=== PATIENT | male | born 1990 | race Caucasian/White ===

== ENCOUNTER → 2016-11-09 | Outpatient (CLI) | payer OTHER ==
[~2016-11-09] MED LIST: AMOXICILLIN500 M2 PO; AMOXICILLIN500 M3 PO; ANAPROX DS550 MG PO; ATARAX25 MG PO; BACTRIM DS 8001 TA1 PO; BACTROBAN2% TP; BENADRYL ALLERG25 M5 PO; CEPHALEXIN500 M1 PO; CLARITIN10 MG PO; CLEOCIN HCL150 MG PO; CLEOCIN150 MG PO; CYCLOBENZAPRINE10 MG PO; DARVOCET N 1001 TAB PO; ELIMITE 5%60 GM T; FIORICET 325 MG1 TAB PO; FLONASE ALLERG9.9 ML NAS; Fioricet 325 MG1 TAB PO; HYDROCODONE BIT1 T11 PO; IBU-8800 MG PO; IBU800 M1 PO; KEFLEX500 MG PO; LAMISIL250 MG PO; LEVOTHYROXIN0.025 M1 PO; LOMOTIL 0.025 M1 TA1 PO; LOTRIMIN 1%15 GM T; MEDROL DOSEPAK4 MG PO; MOTRIN800 MG PO; Motrin,Rufen800 MG PO; NAPROSYN500 MG PO; NAPROXEN250 MG PO; NKHM; NORCO 325 MG-51 TAB PO; NORCO 5-325 TA1 EACH PO; OXAPROZIN600 M1 PO; PHENERGAN25 M1 PO; PREDNISONE10 MG PO; PREDNISONE20 M1 PO; PRILOSEC20 M1 PO; Percocet 325 MG1 TAB PO; QUALITY CHOICE10 M3 PO; TIZANIDINE HCL4 MG PO; TRAMADOL HCL50 MG PO; ULTRAM50 MG PO; VALTREX500 MG PO; VIBRAMYCIN100 MG PO; VICODIN 5/500 505 MG PO; ZANAFLEX4 M2 PO; ZANAFLEX6 M1 PO; ZANTAC 150150 MG PO; ZANTAC150 MG PO; ZITHROMAX250 MG PO; ZOFRAN4 MG PO; ZOLOFT25 MG PO; ZYRTEC10 MG PO; [UNRECOGNIZED DRUG - REMARK]
[2016-11-09 10:24] LABS: BASO % 0.7 % (0.0-1.0); EOS # 0.1 10*3/uL (0.0-0.4); EOS % 1.9 % (1.0-4.0); HEMOGLOBIN 14.8 g/dl (14.0-18.0); LYMPH # 1.4 10*3/uL (1.3-4.4); LYMPH % 32.4 % (27.0-41.0); MEAN CELL VOLUME 89.6 fl (80.0-94.0); MEAN CORPUSCULAR HGB 31.6 pg (27.0-31.0); MEAN CORPUSCULAR HGB CONC 35.2 g/dl (33.0-37.0); MEAN PLATELET VOLUME 9.1 fl (9.6-12.3); MONO # 0.5 10*3/uL (0.1-1.0); MONO % 10.7 % (3.0-9.0); NEUT # 2.3 10*3/uL (2.3-7.9); NEUT % 53.6 % (47.0-73.0); PLATELET COUNT AUTOMATED 160 10*3/uL (130-400); RED BLOOD COUNT 4.69 10*6/uL (4.50-5.90); RED CELL DISTRI WIDTH 12.4 % (0-14.5); WHITE BLOOD COUNT 4.2 10*3/uL (4.8-10.8)
[2016-11-10 07:06] LABS: HEPATITIS C VIRUS ANTIBODY <0.1 s/co (0.0-0.9)
[2016-11-10 09:12] LABS: RHEUMATOID ARTHRITIS FACTOR <10.0 IU/mL (0.0-13.9)
[2016-11-10 13:08] LABS: LYME AB/TOTAL IMMUNOGLOBULINS <0.91 ISR (0.00-0.90)
[2016-11-16 14:06] LABS: HLA-B27 ANTIGEN Negative (.)
== END | disposition home or self-care (01) ==
LOC: LAB 09:51
PROVIDERS: Physician Assistant
DX: M79.642 Pain in left hand (principal); M79.641 Pain in right hand; M25.442 Effusion, left hand; M25.441 Effusion, right hand

== ENCOUNTER 2017-01-19 18:17 | Emergency (ER) | payer OTHER ==
[~2017-01-19] VITALS: Ht 180.3 cm; Wt 114.8 kg
[2017-01-19] MEDS ORDERED: CLINDAMYCIN150 MG PO (18:29)
[2017-01-19] MEDS ORDERED: ZOFRAN4 MG PO (18:29)
== END 2017-01-19 18:30 | disposition home or self-care (01) ==
LOC: ED 18:17
DX: L05.01 Pilonidal cyst with abscess (principal); R03.0 Elevated blood-pressure reading, without diagnosis of hypertension; Z90.49 Acquired absence of other specified parts of digestive tract; Z79.899 Other long term (current) drug therapy; Z88.1 Allergy status to other antibiotic agents; Z88.6 Allergy status to analgesic agent; Z88.5 Allergy status to narcotic agent

== ENCOUNTER → 2017-02-03 | Day surgery (SDC) | payer OTHER ==
[2017-01-28 10:07] VITALS: BP 140/87
[2017-01-28 10:29] LABS: BASO % 0.6 % (0.0-1.0); EOS # 0.1 10*3/uL (0.0-0.4); EOS % 2.2 % (1.0-4.0); HEMATOCRIT 42.6 % (42.0-52.0); HEMOGLOBIN 15.5 g/dl (14.0-18.0); LYMPH # 1.6 10*3/uL (1.3-4.4); LYMPH % 31.4 % (27.0-41.0); MEAN CELL VOLUME 88.8 fl (80.0-94.0); MEAN CORPUSCULAR HGB 32.3 pg (27.0-31.0); MEAN CORPUSCULAR HGB CONC 36.4 g/dl (33.0-37.0); MEAN PLATELET VOLUME 9.6 fl (9.6-12.3); MONO # 0.5 10*3/uL (0.1-1.0); MONO % 8.8 % (3.0-9.0); NEUT # 2.9 10*3/uL (2.3-7.9); NEUT % 56.6 % (47.0-73.0); PLATELET COUNT AUTOMATED 171 10*3/uL (130-400); RED CELL DISTRI WIDTH 12.2 % (0-14.5); WHITE BLOOD COUNT 5.1 10*3/uL (4.8-10.8)
[2017-01-28 10:31] LABS: BILIRUBIN NEGATIVE (NEGATIVE); BLOOD NEGATIVE (NEGATIVE); CLARITY CLEAR (CLEAR); COLOR YELLOW (YELLOW); GLUCOSE NEGATIVE (NEGATIVE); KETONE NEGATIVE (NEGATIVE); LEUKO ESTERASE NEGATIVE (NEGATIVE); NITRITE NEGATIVE (NEGATIVE); PROTEIN NEGATIVE (NEGATIVE)
[2017-01-28 11:00] LABS: BUN 13 mg/dl (7-24); CARBON DIOXIDE 28 mmol/L (21-32); CHLORIDE 106 mmol/L (98-107); EST GLOM FILT AFRICAN AMERICAN > 60 ml/min; GLUCOSE 93 mg/dL (65-99); POTASSIUM 4.1 mmol/L (3.5-5.1); SODIUM 140 mmol/L (136-145)
[2017-01-28 11:02] LABS: PROTHROMBIN TIME 10.3 SECONDS (9.0-12.4)
[2017-01-28 12:20] LABS: MUCOUS 1+
[2017-02-03] VITALS (8 sets, daily range): BP systolic 111–145; BP diastolic 52–88
[~2017-02-03] VITALS: Ht 180.3 cm; Wt 115.7 kg
[~2017-02-03] MED LIST changes: +CLINDAMYCIN150 MG PO; +MELOXICAM15 MG PO
--- NOTE | ~2017-02-03 | O ---
[place], [place] OPERATIVE NOTE NAME: LIEN RANDOLPH Vance UNIT #: [id number] ROOM: DOCTOR: JEF HUITRON MD BIRTHDATE: [birth year] DOS: 02/03/2017 PREOPERATIVE DIAGNOSIS: Pilonidal cyst. POSTOPERATIVE DIAGNOSIS: Pilonidal cyst. PROCEDURE: Excision of pilonidal cyst. SURGEON: Dr. Jef Huitron. CEMENT CONVEYOR OPERATOR: PGY1. ANESTHESIA: GET. INDICATIONS: This is a 26-year-old gentleman with a history of pilonidal cyst who is here for the above-mentioned procedure. The procedure and its complications were explained to the patient in detail. Complications that were discussed included but were not limited to bleeding, infection, recurrence, prolonged postoperative pain, and damage to underlying vital structures, he agreed to proceed. DESCRIPTION OF PROCEDURE: After identifying the patient, the patient was brought to the operating suite and laid in the supine position. After induction of general anesthesia, he was placed in a prone position on the operating room table and the parts were then shaved, painted and draped in the usual sterile fashion. Timeout procedure was called. An elliptical incision around two openings in the pilonidal cyst area were marked. The skin and the subcutaneous tissue were incised with the help of a knife and deepened in layers. The entire sinus tract was excised and sent for histopathological diagnosis. Thereafter, hemostasis was achieved and the subcutaneous tissue was irrigated and approximated with the help of 0 Vicryl in interrupted fashion. The skin edges were infiltrated with 1% plain lidocaine and approximated with the help of 2-0 nylon in an interrupted mattress fashion and dressing was placed. The patient was taken to the recovery room in stable fashion after uneventful extubation. Dr. Jef Huitron, the attending surgeon, was present throughout the operating case. [place], [place] OPERATIVE NOTE NAME: AGUSTÍNLIEN UNIT #: [id number] ROOM: DOCTOR: JEF HUITRON MD BIRTHDATE: [birth year] Jef Hiutron MD CM:OPRECORD:OPERATIVE NOTE [id number] JEF HUITRON MD 02/03/17 1002 interface
== END | disposition home or self-care (01) ==
LOC: LAB 01-28 09:30 → SDC 01-28 09:30
PROVIDERS: Surgery
DX: L05.91 Pilonidal cyst without abscess (principal); I10 Essential (primary) hypertension; J45.909 Unspecified asthma, uncomplicated; E07.9 Disorder of thyroid, unspecified; K21.9 Gastro-esophageal reflux disease without esophagitis; F41.9 Anxiety disorder, unspecified; F31.9 Bipolar disorder, unspecified; F20.9 Schizophrenia, unspecified

== ENCOUNTER 2017-09-06 17:55 | Emergency (ER) | payer OTHER ==
[~2017-09-06] VITALS: Ht 154.9 cm; Wt 98.9 kg
[2017-09-06] MEDS ORDERED: FLONASE ALLERG9.9 ML NS (18:15)
[2017-09-06] MEDS ORDERED: ZITHROMAX250 MG PO (18:15)
== END 2017-09-06 18:16 | disposition home or self-care (01) ==
LOC: ED 17:55
DX: J01.90 Acute sinusitis, unspecified (principal); J45.909 Unspecified asthma, uncomplicated; Z88.1 Allergy status to other antibiotic agents; Z88.6 Allergy status to analgesic agent; Z79.899 Other long term (current) drug therapy

== ENCOUNTER 2018-02-03 12:26 | Emergency (ER) | payer OTHER ==
[~2018-02-03] VITALS: Ht 180.3 cm; Wt 104.3 kg
[~2018-02-03 12:26] MED LIST changes: +FLONASE ALLERG9.9 ML NS
[2018-02-03] MEDS ORDERED: CHLORZOXAZONE500 M2 PO (12:52)
[2018-02-03] MEDS ORDERED: TYLENOL EXTRA500 M2 PO (12:52)
== END 2018-02-03 12:58 | disposition home or self-care (01) ==
LOC: ED 12:26
DX: S29.012A Strain of muscle and tendon of back wall of thorax, initial encounter (principal); R03.0 Elevated blood-pressure reading, without diagnosis of hypertension; Z90.49 Acquired absence of other specified parts of digestive tract; Z79.899 Other long term (current) drug therapy; Z88.1 Allergy status to other antibiotic agents; Z88.6 Allergy status to analgesic agent; Z88.5 Allergy status to narcotic agent; X50.1XXA Overexertion from prolonged static or awkward postures, initial encounter; Y93.89 Activity, other specified; Y92.89 Other specified places as the place of occurrence of the external cause; Y99.9 Unspecified external cause status

== ENCOUNTER → 2018-05-10 | Outpatient (CLI) | payer OTHER ==
[~2018-05-10] MED LIST changes: +CHLORZOXAZONE500 M2 PO; +TYLENOL EXTRA500 M2 PO
== END | disposition home or self-care (01) ==
LOC: MRI 14:09
DX: S83.232A Complex tear of medial meniscus, current injury, left knee, initial encounter (principal); X58.XXXA Exposure to other specified factors, initial encounter; Y93.89 Activity, other specified; Y92.89 Other specified places as the place of occurrence of the external cause; Y99.8 Other external cause status

== ENCOUNTER 2018-10-06 18:42 | Emergency (ER) | payer OTHER ==
[~2018-10-06] VITALS: Ht 180.3 cm; Wt 104.3 kg
[2018-10-06] MEDS ORDERED: CHLORZOXAZONE500 M2 PO (18:51)
[2018-10-06] MEDS ORDERED: PREDNISONE10 MG PO (18:51)
== END 2018-10-06 20:06 | disposition home or self-care (01) ==
LOC: ED 18:42
DX: M54.42 Lumbago with sciatica, left side (principal); M54.6 Pain in thoracic spine; R03.0 Elevated blood-pressure reading, without diagnosis of hypertension; Z88.1 Allergy status to other antibiotic agents; Z88.6 Allergy status to analgesic agent; Z79.899 Other long term (current) drug therapy; Z90.49 Acquired absence of other specified parts of digestive tract; X50.1XXA Overexertion from prolonged static or awkward postures, initial encounter; Y93.F2 Activity, caregiving, lifting; Y92.89 Other specified places as the place of occurrence of the external cause; Y99.8 Other external cause status

== ENCOUNTER 2019-06-19 11:41 | Emergency (ER) | payer OTHER ==
[~2019-06-19] VITALS: Ht 180.3 cm; Wt 106.6 kg
[~2019-06-19 11:41] MED LIST changes: +LIDEX 0.05% CRE15 GM T
[2019-06-19] MEDS ORDERED: ALLERGY RELIEF180 MG PO (11:42)
[2019-06-19] MEDS ORDERED: LISINOPRIL5 MG PO (11:42)
[2019-06-19] MEDS ORDERED: GEMFIBROZIL600 MG PO (11:42)
[2019-06-19] MEDS ORDERED: LANSOPRAZOLE30 MG PO (11:42)
[2019-06-19] MEDS ORDERED: SERTRALINE HYDR50 MG PO (11:42)
[2019-06-19] MEDS ORDERED: IBU800 MG PO (13:26)
== END 2019-06-19 13:29 | disposition home or self-care (01) ==
LOC: ED 11:41
DX: M79.672 Pain in left foot (principal); Z88.1 Allergy status to other antibiotic agents; Z88.6 Allergy status to analgesic agent; Z88.8 Allergy status to other drugs, medicaments and biological substances; Z79.899 Other long term (current) drug therapy; X58.XXXA Exposure to other specified factors, initial encounter; Y93.89 Activity, other specified; Y92.89 Other specified places as the place of occurrence of the external cause; Y99.8 Other external cause status

== ENCOUNTER → 2019-07-31 | Outpatient (CLI) | payer OTHER ==
[~2019-07-31] MED LIST changes: +ALLERGY RELIEF180 MG PO; +GEMFIBROZIL600 MG PO; +IBU800 MG PO; +LANSOPRAZOLE30 MG PO; +LISINOPRIL5 MG PO; +SERTRALINE HYDR50 MG PO
== END | disposition home or self-care (01) ==
LOC: LAB 12:33
DX: Z00.00 Encounter for general adult medical examination without abnormal findings (principal)

== ENCOUNTER 2019-08-11 09:43 | Emergency (ER) | payer OTHER ==
[~2019-08-11] VITALS: Ht 180.3 cm; Wt 106.1 kg
== END 2019-08-11 11:45 | disposition home or self-care (01) ==
LOC: ED 09:43
DX: S86.811A Strain of other muscle(s) and tendon(s) at lower leg level, right leg, initial encounter (principal); Z90.49 Acquired absence of other specified parts of digestive tract; Z79.899 Other long term (current) drug therapy; Z88.6 Allergy status to analgesic agent; Z88.5 Allergy status to narcotic agent; Z88.1 Allergy status to other antibiotic agents; X50.1XXA Overexertion from prolonged static or awkward postures, initial encounter; Y93.89 Activity, other specified; Y92.89 Other specified places as the place of occurrence of the external cause; Y99.9 Unspecified external cause status

== ENCOUNTER → 2019-08-29 | Outpatient (CLI) | payer OTHER | END | disposition home or self-care (01) | LOC: MRI 08:04 | DX: M17.0 Bilateral primary osteoarthritis of knee (principal) ==

== ENCOUNTER → 2019-09-26 | Outpatient (CLI) | payer OTHER | END | disposition home or self-care (01) | LOC: RAD 01:30 | DX: M25.561 Pain in right knee (principal) ==

== ENCOUNTER → 2019-10-22 | Outpatient (CLI) | payer OTHER ==
[~2019-10-22] MED LIST changes: +ZOLOFT50 MG PO
[2019-10-22 10:58] LABS: BILIRUBIN NEGATIVE (NEGATIVE); BLOOD NEGATIVE (NEGATIVE); CLARITY CLEAR (CLEAR); COLOR YELLOW (YELLOW); GLUCOSE NEGATIVE (NEGATIVE); KETONE NEGATIVE (NEGATIVE); LEUKO ESTERASE NEGATIVE (NEGATIVE); NITRITE NEGATIVE (NEGATIVE); SPECIFIC GRAVITY 1.025 (1.005-1.030); UROBILINOGEN 0.2 E.U./dl (0.2-1.0)
[2019-10-22 11:12] LABS: BASO # 0.1 10*3/uL (0.0-0.1); EOS # 0.2 10*3/uL (0.0-0.4); EOS % 4.5 % (1.0-4.0); HEMATOCRIT 42.7 % (42.0-52.0); HEMOGLOBIN 14.8 g/dl (14.0-18.0); LYMPH # 1.4 10*3/uL (1.3-4.4); LYMPH % 28.7 % (27.0-41.0); MEAN CELL VOLUME 92.4 fl (80.0-94.0); MEAN CORPUSCULAR HGB CONC 34.7 g/dl (33.0-37.0); MEAN PLATELET VOLUME 9.7 fl (9.6-12.3); MONO # 0.5 10*3/uL (0.1-1.0); MONO % 10.1 % (3.0-9.0); NEUT # 2.7 10*3/uL (2.3-7.9); NEUT % 55.3 % (47.0-73.0); PLATELET COUNT AUTOMATED 197 10*3/uL (130-400); RED BLOOD COUNT 4.62 10*6/uL (4.50-5.90); RED CELL DISTRI WIDTH 12.3 % (0-14.5); WHITE BLOOD COUNT 4.9 10*3/uL (4.8-10.8)
[2019-10-22 11:24] LABS: EPITHELIAL CELLS 0-2; WBC 0-2 wbc/hpf (0-5)
== END | disposition home or self-care (01) ==
LOC: LAB 09:17
PROVIDERS: Orthopaedic Surgery
DX: S83.281A Other tear of lateral meniscus, current injury, right knee, initial encounter (principal); M94.261 Chondromalacia, right knee; I10 Essential (primary) hypertension; X58.XXXA Exposure to other specified factors, initial encounter; Y93.89 Activity, other specified; Y92.89 Other specified places as the place of occurrence of the external cause; Y99.8 Other external cause status

== ENCOUNTER → 2019-11-01 | Day surgery (SDC) | payer OTHER ==
[2019-10-22 09:45] VITALS: BP 130/76
[2019-11-01] VITALS (7 sets, daily range): BP systolic 118–151; BP diastolic 64–104
[~2019-11-01] VITALS: Ht 177.8 cm; Wt 109.3 kg
[~2019-11-01] MED LIST changes: +VISTARIL50 MG PO
== END | disposition home or self-care (01) ==
LOC: SDC 10-22 13:15
DX: S83.241A Other tear of medial meniscus, current injury, right knee, initial encounter (principal); M94.261 Chondromalacia, right knee; I10 Essential (primary) hypertension; K21.9 Gastro-esophageal reflux disease without esophagitis; F41.9 Anxiety disorder, unspecified; F32.9 Major depressive disorder, single episode, unspecified; J45.909 Unspecified asthma, uncomplicated; M19.90 Unspecified osteoarthritis, unspecified site; Z98.890 Other specified postprocedural states; Z79.899 Other long term (current) drug therapy; X58.XXXA Exposure to other specified factors, initial encounter; Y93.89 Activity, other specified; Y92.89 Other specified places as the place of occurrence of the external cause; Y99.8 Other external cause status; Z83.3 Family history of diabetes mellitus

== ENCOUNTER 2020-03-15 14:32 | Emergency (ER) | payer OTHER ==
[~2020-03-15] VITALS: Ht 180.3 cm; Wt 109.8 kg
[2020-03-15] MEDS ORDERED: IBU800 MG PO (17:17)
[2020-03-15] MEDS ORDERED: NORCO 5-325 TA1 EACH PO (17:17)
== END 2020-03-15 17:34 | disposition home or self-care (01) ==
LOC: ED 14:32
DX: S89.92XA Unspecified injury of left lower leg, initial encounter (principal); I10 Essential (primary) hypertension; J45.909 Unspecified asthma, uncomplicated; K21.9 Gastro-esophageal reflux disease without esophagitis; F41.9 Anxiety disorder, unspecified; F31.9 Bipolar disorder, unspecified; Z88.8 Allergy status to other drugs, medicaments and biological substances; Z88.5 Allergy status to narcotic agent; Z79.899 Other long term (current) drug therapy; Z79.2 Long term (current) use of antibiotics; Z90.49 Acquired absence of other specified parts of digestive tract; Y93.6A Activity, physical games generally associated with school recess, summer camp and children; Y93.89 Activity, other specified; Y92.89 Other specified places as the place of occurrence of the external cause; Y99.8 Other external cause status

== ENCOUNTER 2020-09-30 14:43 | Emergency (ER) | payer OTHER ==
[~2020-09-30] VITALS: Ht 180.3 cm; Wt 115.2 kg
[2020-09-30] MEDS ORDERED: NORCO 5-325 TA1 EACH PO (18:52)
== END 2020-09-30 19:02 | disposition home or self-care (01) ==
LOC: ED 14:43
DX: S92.355A Nondisplaced fracture of fifth metatarsal bone, left foot, initial encounter for closed fracture (principal); I10 Essential (primary) hypertension; J45.909 Unspecified asthma, uncomplicated; K21.9 Gastro-esophageal reflux disease without esophagitis; F41.9 Anxiety disorder, unspecified; F31.9 Bipolar disorder, unspecified; F90.9 Attention-deficit hyperactivity disorder, unspecified type; F20.9 Schizophrenia, unspecified; F32.9 Major depressive disorder, single episode, unspecified; Z88.1 Allergy status to other antibiotic agents; Z88.6 Allergy status to analgesic agent; Z79.899 Other long term (current) drug therapy; Z90.49 Acquired absence of other specified parts of digestive tract; X50.1XXA Overexertion from prolonged static or awkward postures, initial encounter; Y93.89 Activity, other specified; Y92.89 Other specified places as the place of occurrence of the external cause; Y99.8 Other external cause status

== ENCOUNTER 2021-02-09 22:36 | Emergency (ER) | payer OTHER ==
[2021-02-10] MEDS ORDERED: NAPROSYN500 MG PO (00:24)
== END 2021-02-10 00:27 | disposition home or self-care (01) ==
LOC: ED 22:36
DX: S92.352A Displaced fracture of fifth metatarsal bone, left foot, initial encounter for closed fracture (principal); M79.672 Pain in left foot; Z90.49 Acquired absence of other specified parts of digestive tract; Z98.890 Other specified postprocedural states; Z88.8 Allergy status to other drugs, medicaments and biological substances; Z88.5 Allergy status to narcotic agent; X58.XXXA Exposure to other specified factors, initial encounter; Y93.89 Activity, other specified; Y92.89 Other specified places as the place of occurrence of the external cause; Y99.8 Other external cause status

== ENCOUNTER 2021-03-06 15:40 | Emergency (ER) | payer OTHER ==
[~2021-03-06] VITALS: Ht 180.3 cm; Wt 119.7 kg
[2021-03-06] MEDS ORDERED: CEPHALEXIN500 M1 PO (20:45)
[2021-03-06] MEDS ORDERED: HYDROCODONE-AC1 EAC1 PO (20:45)
== END 2021-03-06 20:45 | disposition home or self-care (01) ==
LOC: ED 15:40
DX: S61.431A Puncture wound without foreign body of right hand, initial encounter (principal); Z88.8 Allergy status to other drugs, medicaments and biological substances; Z88.5 Allergy status to narcotic agent; Z79.899 Other long term (current) drug therapy; Z90.49 Acquired absence of other specified parts of digestive tract; Z98.890 Other specified postprocedural states; X58.XXXA Exposure to other specified factors, initial encounter; Y93.89 Activity, other specified; Y92.89 Other specified places as the place of occurrence of the external cause; Y99.8 Other external cause status

== ENCOUNTER → 2021-03-13 | Outpatient (CLI) | payer OTHER ==
[~2021-03-13] MED LIST changes: +HYDROCODONE-AC1 EAC1 PO
[2021-03-13 15:50] LABS: BILIRUBIN Negative (Negative); BLOOD Negative (Negative); CLARITY Clear (Clear); COLOR Yellow (Yellow); GLUCOSE Negative (Negative); KETONE Negative (Negative); LEUKO ESTERASE Negative (Negative); NITRITE Negative (Negative)
[2021-03-13 15:52] LABS: BASO % 0.8 % (0.0-1.0); EOS # 0.1 10*3/uL (0.0-0.4); EOS % 2.8 % (1.0-4.0); HEMATOCRIT 41.8 % (42.0-52.0); LYMPH # 1.3 10*3/uL (1.3-4.4); LYMPH % 31.6 % (27.0-41.0); MEAN CELL VOLUME 91.3 fl (80.0-94.0); MEAN CORPUSCULAR HGB 31.9 pg (27.0-31.0); MEAN CORPUSCULAR HGB CONC 34.9 g/dl (33.0-37.0); MEAN PLATELET VOLUME 9.9 fl (9.6-12.3); MONO # 0.4 10*3/uL (0.1-1.0); MONO % 9.9 % (3.0-9.0); NEUT # 2.2 10*3/uL (2.3-7.9); NEUT % 54.4 % (47.0-73.0); PLATELET COUNT AUTOMATED 206 10*3/uL (130-400); RED BLOOD COUNT 4.58 10*6/uL (4.50-5.90); RED CELL DISTRI WIDTH 12.2 % (0-14.5); RETICULOCYTE % 2.07 % (0.50-2.50)
[2021-03-13 16:22] LABS: ALBUMIN 4.4 gm/dl (3.1-4.5); ALKALINE PHOSPHATASE 70 U/L (45-117); BUN 17 mg/dl (7-24); CHLORIDE 106 mmol/L (98-107); CHOLESTEROL 193 mg/dL (<200); CREATININE 1.01 mg/dL (0.70-1.30); GAMMA GLUTAMYL TRANSPEPTIDASE 24 U/L (15-85); IRON 202 ug/dL (65-175); LDL CHOLESTEROL 92 mg/dL (9-159); POTASSIUM 3.9 mmol/L (3.5-5.1); SGOT/AST 39 IU/L (3-35); SGPT/ALT 67 U/L (12-78); SODIUM 138 mmol/L (136-145); TOTAL IRON BINDING CAPACITY 444 ug/dl (250-450); TOTAL PROTEIN 7.5 gm/dL (6.4-8.2); TRIGLYCERIDES 360 mg/dl (<150)
[2021-03-13 16:29] LABS: CPK 181 U/L (39-308)
[2021-03-13 16:41] LABS: FERRITIN 110.3 ng/mL (22.0-322.0); VITAMIN D, 25-HYDROXY 26.6 ng/mL (30-100)
[2021-03-13 17:00] LABS: EPITHELIAL CELLS 16-20; HYALINE CAST 0-2; MUCOUS TRACE; WBC 0-2 wbc/hpf (0-5)
== END | disposition home or self-care (01) ==
LOC: LAB 14:15
PROVIDERS: ATTEND Family Medicine
DX: E78.5 Hyperlipidemia, unspecified (principal); R79.89 Other specified abnormal findings of blood chemistry; R53.83 Other fatigue; E55.9 Vitamin D deficiency, unspecified; R74.8 Abnormal levels of other serum enzymes

== ENCOUNTER 2021-06-18 13:56 | Emergency (ER) | payer OTHER ==
[~2021-06-18] VITALS: Ht 180.3 cm; Wt 116.6 kg
== END 2021-06-18 16:12 | disposition home or self-care (01) ==
LOC: ED 13:56
DX: U07.1 COVID-19 (principal); Z88.1 Allergy status to other antibiotic agents; Z88.6 Allergy status to analgesic agent; Z79.899 Other long term (current) drug therapy

== ENCOUNTER 2021-07-12 23:46 | Emergency (ER) | payer OTHER ==
[~2021-07-12] VITALS: Wt 106.6 kg
[2021-07-13 00:38] LABS: BASO % 0.8 % (0.0-1.0); EOS # 0.2 10*3/uL (0.0-0.4); EOS % 3.2 % (1.0-4.0); HEMATOCRIT 39.2 % (42.0-52.0); LYMPH # 1.4 10*3/uL (1.3-4.4); LYMPH % 29.4 % (27.0-41.0); MEAN CELL VOLUME 92.9 fl (80.0-94.0); MEAN CORPUSCULAR HGB 32.9 pg (27.0-31.0); MEAN CORPUSCULAR HGB CONC 35.5 g/dl (33.0-37.0); MONO # 0.4 10*3/uL (0.1-1.0); MONO % 8.8 % (3.0-9.0); NEUT # 2.7 10*3/uL (2.3-7.9); NEUT % 57.4 % (47.0-73.0); PLATELET COUNT AUTOMATED 182 10*3/uL (130-400); RED BLOOD COUNT 4.22 10*6/uL (4.50-5.90); RED CELL DISTRI WIDTH 12.3 % (0-14.5); WHITE BLOOD COUNT 4.8 10*3/uL (4.8-10.8)
[2021-07-13 01:02] LABS: ALBUMIN 4.2 gm/dl (3.1-4.5); ALKALINE PHOSPHATASE 64 U/L (45-117); BUN 23 mg/dl (7-24); CHLORIDE 107 mmol/L (98-107); CREATININE 0.99 mg/dL (0.70-1.30); LIPASE 134 U/L (73-393); POTASSIUM 3.5 mmol/L (3.5-5.1); SGOT/AST 37 IU/L (3-35); SGPT/ALT 87 U/L (12-78); SODIUM 139 mmol/L (136-145); TOTAL PROTEIN 7.3 gm/dL (6.4-8.2)
[2021-07-13 01:03] LABS: TROPONIN I < 0.015 ng/ml (<0.045)
== END 2021-07-13 04:45 | disposition home or self-care (01) ==
LOC: ED 23:46
PROVIDERS: Emergency Medicine
DX: R07.89 Other chest pain (principal); R20.0 Anesthesia of skin; R06.02 Shortness of breath; E78.00 Pure hypercholesterolemia, unspecified; I10 Essential (primary) hypertension; E03.9 Hypothyroidism, unspecified; Z88.1 Allergy status to other antibiotic agents; Z88.6 Allergy status to analgesic agent; Z79.2 Long term (current) use of antibiotics; Z79.899 Other long term (current) drug therapy; Z90.49 Acquired absence of other specified parts of digestive tract

== ENCOUNTER → 2021-07-24 | Outpatient (CLI) | payer OTHER | END | disposition home or self-care (01) | LOC: US 06:49 | PROVIDERS: ATTEND Family Medicine | DX: K80.20 Calculus of gallbladder without cholecystitis without obstruction (principal); R10.84 Generalized abdominal pain ==

== ENCOUNTER → 2021-07-29 | Outpatient (CLI) | payer OTHER | END | disposition home or self-care (01) | LOC: RAD 11:30 | PROVIDERS: ATTEND Family Medicine | DX: M17.12 Unilateral primary osteoarthritis, left knee (principal) ==

== ENCOUNTER → 2021-09-11 | Outpatient (CLI) | payer OTHER ==
[2021-09-11 13:39] LABS: BASO % 0.7 % (0.0-1.0); EOS # 0.1 10*3/uL (0.0-0.4); EOS % 2.5 % (1.0-4.0); HEMATOCRIT 42.6 % (42.0-52.0); LYMPH # 1.1 10*3/uL (1.3-4.4); LYMPH % 25.5 % (27.0-41.0); MEAN CELL VOLUME 93.6 fl (80.0-94.0); MEAN CORPUSCULAR HGB 32.7 pg (27.0-31.0); MEAN PLATELET VOLUME 10.2 fl (9.6-12.3); MONO # 0.6 10*3/uL (0.1-1.0); NEUT # 2.6 10*3/uL (2.3-7.9); NEUT % 58.1 % (47.0-73.0); PLATELET COUNT AUTOMATED 189 10*3/uL (130-400); RED BLOOD COUNT 4.55 10*6/uL (4.50-5.90); RETICULOCYTE % 1.71 % (0.50-2.50); WHITE BLOOD COUNT 4.4 10*3/uL (4.8-10.8)
[2021-09-11 13:44] LABS: BILIRUBIN Negative (Negative); BLOOD Negative (Negative); CLARITY Clear (Clear); COLOR Yellow (Yellow); GLUCOSE Negative (Negative); KETONE Negative (Negative); LEUKO ESTERASE Negative (Negative); NITRITE Negative (Negative); PH 7.5 (4.5-8.0)
[2021-09-11 13:54] LABS: ALBUMIN 4.2 gm/dl (3.1-4.5); ALKALINE PHOSPHATASE 55 U/L (45-117); BUN 16 mg/dl (7-24); CHLORIDE 108 mmol/L (98-107); CHOLESTEROL 159 mg/dL (<200); CREATININE 0.83 mg/dL (0.70-1.30); GAMMA GLUTAMYL TRANSPEPTIDASE 24 U/L (15-85); IRON 118 ug/dL (65-175); LDL CHOLESTEROL 64 mg/dL (9-159); POTASSIUM 3.9 mmol/L (3.5-5.1); SGOT/AST 36 IU/L (3-35); SGPT/ALT 88 U/L (12-78); SODIUM 138 mmol/L (136-145); TOTAL IRON BINDING CAPACITY 399 ug/dl (250-450); TOTAL PROTEIN 7.5 gm/dL (6.4-8.2); TRIGLYCERIDES 320 mg/dl (<150)
[2021-09-11 13:55] LABS: BACTERIA TRACE; MUCOUS 1+; WBC 0-2 wbc/hpf (0-5)
[2021-09-11 15:18] LABS: FERRITIN 97.1 ng/mL (22.0-322.0); VITAMIN D, 25-HYDROXY 26.5 ng/mL (30-100)
== END | disposition home or self-care (01) ==
LOC: LAB 12:45
PROVIDERS: ATTEND Family Medicine
DX: E55.9 Vitamin D deficiency, unspecified (principal); E78.5 Hyperlipidemia, unspecified; R79.89 Other specified abnormal findings of blood chemistry; R53.83 Other fatigue; R74.8 Abnormal levels of other serum enzymes

== ENCOUNTER 2021-10-02 21:06 | Emergency (ER) | payer OTHER ==
[~2021-10-02] VITALS: Ht 180.3 cm; Wt 109.8 kg
[2021-10-02 22:20] LABS: BILIRUBIN Negative (Negative); BLOOD Negative (Negative); CLARITY Clear (Clear); COLOR Yellow (Yellow); GLUCOSE Negative (Negative); KETONE Negative (Negative); LEUKO ESTERASE 2+ (Negative); NITRITE Negative (Negative); SPECIFIC GRAVITY 1.025 (1.001-1.030)
[2021-10-02 22:27] LABS: BACTERIA TRACE; EPITHELIAL CELLS 0-2; RBC 0-2 rbc/hpf (0-2); WBC TNTC wbc/hpf (0-5)
[2021-10-03] MEDS ORDERED: ATORVASTATIN CA10 M1 PO (00:13)
[2021-10-03] MEDS ORDERED: VITAMIN D3125 MC1 PO (00:13)
[2021-10-03] MEDS ORDERED: LEVOFLOXACIN500 MG PO (01:11)
== END 2021-10-03 01:37 | disposition home or self-care (01) ==
LOC: ED 21:06
PROVIDERS: Emergency Medicine
DX: N45.1 Epididymitis (principal); N39.0 Urinary tract infection, site not specified; Z88.1 Allergy status to other antibiotic agents; Z88.6 Allergy status to analgesic agent; Z79.899 Other long term (current) drug therapy

== ENCOUNTER → 2021-10-26 | Day surgery (SDC) | payer OTHER ==
[2021-10-22 13:47] VITALS: BP 142/94
[~2021-10-26] VITALS: Ht 180.3 cm; Wt 110.7 kg
[~2021-10-26] MED LIST changes: +ATORVASTATIN CA10 M1 PO; +CETIRIZINE HYDR10 MG PO; +COLACE100 MG PO; +HYDROCODONE-AC1 EACH PO; +LEVOFLOXACIN500 MG PO; +MELOXICAM7.5 MG PO; +PROVENTIL HFA6.7 GM INH; +SERTRALINE HYDR25 MG PO; +VITAMIN D3125 MC1 PO
[2021-10-26 06:54] VITALS: BP 137/95
[2021-10-26 08:45] VITALS: BP 154/96
[2021-10-26 09:03] VITALS: BP 146/91
[2021-10-26 09:23] VITALS: BP 155/86
[2021-10-26 09:40] VITALS: BP 130/88
[2021-10-26 10:00] VITALS: BP 135/87
== END | disposition home or self-care (01) ==
LOC: SDC 10-22 13:15
PROVIDERS: ATTEND Surgery
DX: K80.10 Calculus of gallbladder with chronic cholecystitis without obstruction (principal); I10 Essential (primary) hypertension; J45.909 Unspecified asthma, uncomplicated; K21.9 Gastro-esophageal reflux disease without esophagitis; F41.9 Anxiety disorder, unspecified; F90.9 Attention-deficit hyperactivity disorder, unspecified type; F25.0 Schizoaffective disorder, bipolar type; E03.9 Hypothyroidism, unspecified; Z88.1 Allergy status to other antibiotic agents; Z88.6 Allergy status to analgesic agent; Z20.822 Contact with and (suspected) exposure to COVID-19; Z79.899 Other long term (current) drug therapy

== ENCOUNTER → 2022-03-09 | Outpatient (CLI) | payer OTHER ==
[2022-03-09 10:48] LABS: EOS # 0.2 10*3/uL (0.0-0.4); EOS % 4.5 % (1.0-4.0); HEMATOCRIT 41.4 % (42.0-52.0); LYMPH # 1.2 10*3/uL (1.3-4.4); LYMPH % 29.6 % (27.0-41.0); MEAN CELL VOLUME 91.4 fl (80.0-94.0); MEAN CORPUSCULAR HGB 32.7 pg (27.0-31.0); MEAN CORPUSCULAR HGB CONC 35.7 g/dl (33.0-37.0); MEAN PLATELET VOLUME 9.5 fl (9.6-12.3); MONO # 0.4 10*3/uL (0.1-1.0); MONO % 10.9 % (3.0-9.0); NEUT # 2.2 10*3/uL (2.3-7.9); NEUT % 53.8 % (47.0-73.0); PLATELET COUNT AUTOMATED 169 10*3/uL (130-400); RED BLOOD COUNT 4.53 10*6/uL (4.50-5.90); RED CELL DISTRI WIDTH 12.3 % (0-14.5); RETICULOCYTE % 2.19 % (0.50-2.50)
[2022-03-09 10:49] LABS: BILIRUBIN Negative (Negative); BLOOD Negative (Negative); CLARITY Clear (Clear); COLOR Yellow (Yellow); GLUCOSE Negative (Negative); KETONE Negative (Negative); LEUKO ESTERASE Negative (Negative); NITRITE Negative (Negative); PH 6.5 (4.5-8.0); SPECIFIC GRAVITY 1.015 (1.001-1.030)
[2022-03-09 11:08] LABS: RBC 0-2 rbc/hpf (0-2); WBC 0-2 wbc/hpf (0-5)
[2022-03-09 11:18] LABS: ALKALINE PHOSPHATASE 55 U/L (45-117); BUN 18 mg/dl (7-24); CHLORIDE 107 mmol/L (98-107); CHOLESTEROL 145 mg/dL (<200); CREATININE 0.89 mg/dL (0.70-1.30); GAMMA GLUTAMYL TRANSPEPTIDASE 33 U/L (15-85); IRON 164 ug/dL (65-175); LDL CHOLESTEROL 49 mg/dL (9-159); POTASSIUM 4.4 mmol/L (3.5-5.1); SGOT/AST 50 IU/L (3-35); SGPT/ALT 75 U/L (12-78); SODIUM 138 mmol/L (136-145); TOTAL IRON BINDING CAPACITY 391 ug/dl (250-450); TOTAL PROTEIN 7.2 gm/dL (6.4-8.2); TRIGLYCERIDES 355 mg/dl (<150)
[2022-03-09 12:14] LABS: FERRITIN 97.7 ng/mL (22.0-322.0)
== END | disposition home or self-care (01) ==
LOC: LAB 10:26
PROVIDERS: ATTEND Family Medicine
DX: E78.5 Hyperlipidemia, unspecified (principal); E55.9 Vitamin D deficiency, unspecified; R53.83 Other fatigue; R79.89 Other specified abnormal findings of blood chemistry; R74.8 Abnormal levels of other serum enzymes

== ENCOUNTER → 2022-05-18 | Outpatient (CLI) | payer OTHER | END | disposition home or self-care (01) | LOC: RAD 09:33 | PROVIDERS: ATTEND Family Medicine | DX: M17.12 Unilateral primary osteoarthritis, left knee (principal) ==

== ENCOUNTER 2022-06-09 22:54 | Emergency (ER) | payer OTHER | END 2022-06-10 00:11 | disposition home or self-care (01) | LOC: ED 22:54 | DX: R51.9 Headache, unspecified (principal); I10 Essential (primary) hypertension; J45.909 Unspecified asthma, uncomplicated; K21.9 Gastro-esophageal reflux disease without esophagitis; Z88.1 Allergy status to other antibiotic agents; Z88.8 Allergy status to other drugs, medicaments and biological substances; Z79.899 Other long term (current) drug therapy; Z90.49 Acquired absence of other specified parts of digestive tract ==

== ENCOUNTER → 2022-08-03 | Outpatient (CLI) | payer OTHER ==
[2022-08-03 12:51] LABS: BILIRUBIN Negative (Negative); BLOOD Negative (Negative); CLARITY Clear (Clear); COLOR Yellow (Yellow); GLUCOSE Negative (Negative); KETONE Negative (Negative); LEUKO ESTERASE Negative (Negative); NITRITE Negative (Negative); SPECIFIC GRAVITY 1.025 (1.001-1.030)
[2022-08-03 12:52] LABS: BASO % 0.9 % (0.0-1.0); EOS # 0.2 10*3/uL (0.0-0.4); EOS % 3.6 % (1.0-4.0); HEMATOCRIT 41.7 % (42.0-52.0); LYMPH # 1.1 10*3/uL (1.3-4.4); LYMPH % 23.3 % (27.0-41.0); MEAN CELL VOLUME 94.1 fl (80.0-94.0); MEAN CORPUSCULAR HGB 33.4 pg (27.0-31.0); MEAN CORPUSCULAR HGB CONC 35.5 g/dl (33.0-37.0); MEAN PLATELET VOLUME 9.8 fl (9.6-12.3); MONO # 0.5 10*3/uL (0.1-1.0); NEUT # 2.9 10*3/uL (2.3-7.9); NEUT % 61.8 % (47.0-73.0); PLATELET COUNT AUTOMATED 179 10*3/uL (130-400); RED BLOOD COUNT 4.43 10*6/uL (4.50-5.90); RED CELL DISTRI WIDTH 12.3 % (0-14.5); RETICULOCYTE % 2.38 % (0.50-2.50); WHITE BLOOD COUNT 4.7 10*3/uL (4.8-10.8)
[2022-08-03 13:09] LABS: ALKALINE PHOSPHATASE 63 U/L (45-117); BUN 14 mg/dl (7-24); CHLORIDE 108 mmol/L (98-107); CHOLESTEROL 123 mg/dL (<200); GAMMA GLUTAMYL TRANSPEPTIDASE 38 U/L (15-85); LDL CHOLESTEROL 66 mg/dL (9-159); POTASSIUM 3.8 mmol/L (3.5-5.1); SGOT/AST 71 IU/L (3-35); SGPT/ALT 132 U/L (12-78); SODIUM 139 mmol/L (136-145); TOTAL PROTEIN 7.6 gm/dL (6.4-8.2); TRIGLYCERIDES 145 mg/dl (<150)
[2022-08-03 13:15] LABS: IRON 138 ug/dL (65-175)
[2022-08-03 13:38] LABS: BACTERIA TRACE; EPITHELIAL CELLS 0-2; MUCOUS 1+; RBC 0-2 rbc/hpf (0-2); WBC 0-2 wbc/hpf (0-5)
== END | disposition home or self-care (01) ==
LOC: LAB 12:17
PROVIDERS: ATTEND Family Medicine
DX: M17.11 Unilateral primary osteoarthritis, right knee (principal); E78.5 Hyperlipidemia, unspecified; R79.89 Other specified abnormal findings of blood chemistry; E55.9 Vitamin D deficiency, unspecified; R74.8 Abnormal levels of other serum enzymes; R53.83 Other fatigue

== ENCOUNTER 2022-09-17 13:08 | Emergency (ER) | payer OTHER ==
[~2022-09-17] VITALS: Ht 180.3 cm; Wt 119.3 kg
== END 2022-09-17 15:22 | disposition home or self-care (01) ==
LOC: ED 13:08
DX: S90.121A Contusion of right lesser toe(s) without damage to nail, initial encounter (principal); Z88.1 Allergy status to other antibiotic agents; Z88.8 Allergy status to other drugs, medicaments and biological substances; Z79.899 Other long term (current) drug therapy; Z90.49 Acquired absence of other specified parts of digestive tract; W22.8XXA Striking against or struck by other objects, initial encounter; Y93.89 Activity, other specified; Y92.89 Other specified places as the place of occurrence of the external cause; Y99.8 Other external cause status

== ENCOUNTER → 2022-10-20 | Outpatient (CLI) | payer OTHER ==
[2022-10-20 15:36] LABS: BILIRUBIN Negative (Negative); BLOOD Negative (Negative); CLARITY Clear (Clear); COLOR Yellow (Yellow); GLUCOSE Negative (Negative); KETONE Negative (Negative); LEUKO ESTERASE Negative (Negative); NITRITE Negative (Negative)
[2022-10-20 15:36] LABS: BASO # 0.1 10*3/uL (0.0-0.1); EOS # 0.2 10*3/uL (0.0-0.4); EOS % 3.8 % (1.0-4.0); HEMATOCRIT 43.2 % (42.0-52.0); LYMPH # 1.4 10*3/uL (1.3-4.4); LYMPH % 27.4 % (27.0-41.0); MEAN CELL VOLUME 93.5 fl (80.0-94.0); MEAN CORPUSCULAR HGB 33.3 pg (27.0-31.0); MEAN CORPUSCULAR HGB CONC 35.6 g/dl (33.0-37.0); MEAN PLATELET VOLUME 9.8 fl (9.6-12.3); MONO # 0.5 10*3/uL (0.1-1.0); MONO % 9.5 % (3.0-9.0); NEUT # 2.9 10*3/uL (2.3-7.9); NEUT % 58.1 % (47.0-73.0); PLATELET COUNT AUTOMATED 186 10*3/uL (130-400); RED BLOOD COUNT 4.62 10*6/uL (4.50-5.90); RED CELL DISTRI WIDTH 12.4 % (0-14.5)
[2022-10-20 15:47] LABS: RBC 0-2 rbc/hpf (0-2); WBC 0-2 wbc/hpf (0-5)
[2022-10-20 16:05] LABS: ALKALINE PHOSPHATASE 60 U/L (46-116); BUN 8 mg/dl (9-23); CHLORIDE 105 mmol/L (98-107); CHOLESTEROL 137 mg/dL (<200); CREATININE 0.83 mg/dL (0.70-1.30); GAMMA GLUTAMYL TRANSPEPTIDASE 46 U/L (0-73); LDL CHOLESTEROL 47 mg/dL (9-159); POTASSIUM 3.7 mmol/L (3.4-5.1); SGPT/ALT 113 U/L (10-49); THYROID STIM HORMONE (HS) 2.445 uIU/ml (0.550-4.780); TOTAL PROTEIN 7.2 gm/dL (6.0-8.0); TRIGLYCERIDES 275 mg/dl (<150)
[2022-10-20 16:06] LABS: VITAMIN D, 25-HYDROXY 44.8 ng/mL (30-100)
== END | disposition home or self-care (01) ==
LOC: LAB 14:51
PROVIDERS: ATTEND Family Medicine
DX: E78.5 Hyperlipidemia, unspecified (principal); E55.9 Vitamin D deficiency, unspecified; R79.89 Other specified abnormal findings of blood chemistry; R53.83 Other fatigue; R06.02 Shortness of breath; R74.8 Abnormal levels of other serum enzymes; Z90.49 Acquired absence of other specified parts of digestive tract

== ENCOUNTER → 2022-11-09 | Outpatient (CLI) | payer OTHER ==
[2022-11-12 03:06] LABS: CODFISH, IGE <0.10 kU/L (Class 0); EGG WHITE, IGE <0.10 kU/L (Class 0); MILK (COW), IGE <0.10 kU/L (Class 0); PEANUT, IGE <0.10 kU/L (Class 0); SOYBEAN, IGE <0.10 kU/L (Class 0); WHEAT, IGE <0.10 kU/L (Class 0)
[2022-11-12 16:08] LABS: ALTERNARIA ALTERNATA, IGE <0.10 kU/L (Class 0); AMERICAN ELM, IGE <0.10 kU/L (Class 0); ASPERGILLUS FUMIGATU, IGE <0.10 kU/L (Class 0); BERMUDA GRASS, IGE <0.10 kU/L (Class 0); BIRCH, COMMON SILVER IGE <0.10 kU/L (Class 0); CLADOSPORIUM HERBARU, IGE <0.10 kU/L (Class 0); D FARINAE MITE <0.10 kU/L (Class 0); D PTERONYSSINUS <0.10 kU/L (Class 0); DOG DANDER, IGE <0.10 kU/L (Class 0); MAPLE LEAF SYCAMORE, IGE <0.10 kU/L (Class 0); MAPLE/BOX ELDER, IGE <0.10 kU/L (Class 0); MOUSE URINE IGE <0.10 kU/L (Class 0); PENICILLIUM CHRYSOGENUM, IGE <0.10 kU/L (Class 0); ROUGH PIGWEED, IGE <0.10 kU/L (Class 0); SHEEP SORREL (DOCK), IGE <0.10 kU/L (Class 0); SHORT RAGWEED, IGE <0.10 kU/L (Class 0); TIMOTHY, IGE <0.10 kU/L (Class 0); WALNUT TREE, IGE <0.10 kU/L (Class 0); WHITE ASH, IGE <0.10 kU/L (Class 0); WHITE MULBERRY, IGE <0.10 kU/L (Class 0); WHITE OAK, IGE <0.10 kU/L (Class 0)
== END | disposition home or self-care (01) ==
LOC: LAB 09:38
PROVIDERS: ATTEND Specialist
DX: J30.9 Allergic rhinitis, unspecified (principal)

== ENCOUNTER 2023-04-28 15:01 | Emergency (ER) | payer OTHER ==
[~2023-04-28] VITALS: Ht 180.3 cm; Wt 117.9 kg
[2023-04-28] MEDS ORDERED: TRAMADOL HCL50 MG PO (16:42)
== END 2023-04-28 16:49 | disposition home or self-care (01) ==
LOC: ED 15:01
DX: S53.402A Unspecified sprain of left elbow, initial encounter (principal); Z88.6 Allergy status to analgesic agent; Z88.1 Allergy status to other antibiotic agents; Z79.899 Other long term (current) drug therapy; Z90.49 Acquired absence of other specified parts of digestive tract; X58.XXXA Exposure to other specified factors, initial encounter; Y93.89 Activity, other specified; Y92.89 Other specified places as the place of occurrence of the external cause; Y99.8 Other external cause status

== ENCOUNTER → 2024-01-10 | Outpatient (CLI) | payer OTHER ==
[2024-01-10 17:14] LABS: BILIRUBIN Negative (Negative); BLOOD Negative (Negative); CLARITY Clear (Clear); COLOR Yellow (Yellow); GLUCOSE Negative (Negative); KETONE Negative (Negative); LEUKO ESTERASE 1+ (Negative); NITRITE Negative (Negative); SPECIFIC GRAVITY 1.025 (1.001-1.030)
[2024-01-10 17:16] LABS: BASO % 0.5 % (0.0-1.0); EOS # 0.1 10*3/uL (0.0-0.4); EOS % 1.2 % (1.0-4.0); HEMATOCRIT 41.6 % (42.0-52.0); LYMPH # 1.8 10*3/uL (1.3-4.4); LYMPH % 24.3 % (27.0-41.0); MEAN CELL VOLUME 90.2 fl (80.0-94.0); MEAN CORPUSCULAR HGB 31.5 pg (27.0-31.0); MEAN CORPUSCULAR HGB CONC 34.9 g/dl (33.0-37.0); MONO # 0.7 10*3/uL (0.1-1.0); MONO % 8.6 % (3.0-9.0); NEUT # 4.9 10*3/uL (2.3-7.9); PLATELET COUNT AUTOMATED 235 10*3/uL (130-400); RED BLOOD COUNT 4.61 10*6/uL (4.50-5.90); RETICULOCYTE % 1.98 % (0.50-2.50); WHITE BLOOD COUNT 7.6 10*3/uL (4.8-10.8)
[2024-01-10 17:34] LABS: RBC 0-2 rbc/hpf (0-2); WBC 16-20 wbc/hpf (0-5)
[2024-01-10 17:43] LABS: ALKALINE PHOSPHATASE 62 U/L (46-116); BUN 13 mg/dl (9-23); CHLORIDE 104 mmol/L (98-107); CHOLESTEROL 193 mg/dL (<200); GAMMA GLUTAMYL TRANSPEPTIDASE 36 U/L (0-73); LDL CHOLESTEROL 118 mg/dL (9-159); POTASSIUM 3.8 mmol/L (3.4-5.1); SGPT/ALT 76 U/L (5-49); T3 UPTAKE 24.6 % (22.4-36.7); THYROXINE (T4) TOTAL 7.2 ug/dl (4.5-10.9); TOTAL PROTEIN 7.4 gm/dL (6.0-8.0); TRIGLYCERIDES 216 mg/dl (<150)
== END | disposition home or self-care (01) ==
LOC: LAB 16:56
PROVIDERS: ATTEND Family Medicine
DX: E78.5 Hyperlipidemia, unspecified (principal); E55.9 Vitamin D deficiency, unspecified; R79.89 Other specified abnormal findings of blood chemistry; R53.83 Other fatigue; R74.8 Abnormal levels of other serum enzymes

== ENCOUNTER → 2024-01-19 | Outpatient (CLI) | payer OTHER ==
[2024-01-26 05:06] LABS: ALTERNARIA ALTERNATA, IGE <0.10 kU/L (Class 0); AMERICAN ELM, IGE <0.10 kU/L (Class 0); BERMUDA GRASS, IGE <0.10 kU/L (Class 0); D FARINAE MITE <0.10 kU/L (Class 0); D PTERONYSSINUS <0.10 kU/L (Class 0); DOG DANDER, IGE <0.10 kU/L (Class 0); MOUSE URINE IGE <0.10 kU/L (Class 0); SHORT RAGWEED, IGE <0.10 kU/L (Class 0); WHITE OAK, IGE <0.10 kU/L (Class 0)
== END | disposition home or self-care (01) ==
LOC: LAB 13:23
PROVIDERS: ATTEND Family Medicine
DX: E78.5 Hyperlipidemia, unspecified (principal); E55.9 Vitamin D deficiency, unspecified; R53.83 Other fatigue; R74.8 Abnormal levels of other serum enzymes; R79.89 Other specified abnormal findings of blood chemistry

== ENCOUNTER → 2024-03-02 | Outpatient (CLI) | payer OTHER ==
[2024-03-02 12:38] LABS: BASO # 0.1 10*3/uL (0.0-0.1); BASO % 1.1 % (0.0-1.0); EOS # 0.2 10*3/uL (0.0-0.4); EOS % 3.5 % (1.0-4.0); HEMATOCRIT 42.8 % (42.0-52.0); LYMPH # 1.6 10*3/uL (1.3-4.4); LYMPH % 27.8 % (27.0-41.0); MEAN CELL VOLUME 90.5 fl (80.0-94.0); MEAN CORPUSCULAR HGB 32.3 pg (27.0-31.0); MEAN CORPUSCULAR HGB CONC 35.7 g/dl (33.0-37.0); MEAN PLATELET VOLUME 9.3 fl (9.6-12.3); MONO # 0.7 10*3/uL (0.1-1.0); NEUT # 3.2 10*3/uL (2.3-7.9); NEUT % 55.2 % (47.0-73.0); PLATELET COUNT AUTOMATED 203 10*3/uL (130-400); RED BLOOD COUNT 4.73 10*6/uL (4.50-5.90); RED CELL DISTRI WIDTH 13.3 % (0-14.5); RETICULOCYTE % 2.63 % (0.50-2.50); WHITE BLOOD COUNT 5.7 10*3/uL (4.8-10.8)
[2024-03-02 12:43] LABS: BILIRUBIN Negative (Negative); BLOOD Negative (Negative); CLARITY Clear (Clear); COLOR Yellow (Yellow); GLUCOSE Negative (Negative); KETONE Negative (Negative); LEUKO ESTERASE Negative (Negative); NITRITE Negative (Negative); PH 7.5 (4.5-8.0); SPECIFIC GRAVITY 1.015 (1.001-1.030)
[2024-03-02 12:55] LABS: RBC 0-2 rbc/hpf (0-2)
[2024-03-02 12:56] LABS: BACTERIA TRACE; MUCOUS TRACE
[2024-03-02 13:14] LABS: ALKALINE PHOSPHATASE 67 U/L (46-116); BUN 7 mg/dl (9-23); CHLORIDE 105 mmol/L (98-107); CHOLESTEROL 202 mg/dL (<200); GAMMA GLUTAMYL TRANSPEPTIDASE 88 U/L (0-73); POTASSIUM 4.1 mmol/L (3.4-5.1); SGPT/ALT 141 U/L (5-49); T3 UPTAKE 22.3 % (22.4-36.7); THYROXINE (T4) TOTAL 5.4 ug/dl (4.5-10.9); TOTAL PROTEIN 7.3 gm/dL (6.0-8.0); TRIGLYCERIDES 488 mg/dl (<150)
[2024-03-02 13:15] LABS: VITAMIN D, 25-HYDROXY 38.2 ng/mL (30-100)
== END | disposition home or self-care (01) ==
LOC: LAB 12:14
PROVIDERS: ATTEND Family Medicine
DX: M17.12 Unilateral primary osteoarthritis, left knee (principal); R79.89 Other specified abnormal findings of blood chemistry; R53.83 Other fatigue; E78.5 Hyperlipidemia, unspecified; R74.8 Abnormal levels of other serum enzymes; E55.9 Vitamin D deficiency, unspecified

== ENCOUNTER 2024-05-05 20:40 | Emergency (ER) | payer OTHER ==
[~2024-05-05] VITALS: Ht 175.2 cm; Wt 124.7 kg
[2024-05-05] MEDS ORDERED: Acetaminophen/Oxycodone 5 MG/325 MG TABLET PO ONE (22:50)
[2024-05-05] MEDS ORDERED: diphenhydrAMINE hydrochloride 25 MG CAP PO ONE ×2 (22:50→23:20)
[2024-05-06] MEDS ORDERED: PERCOCET 5-3251 EACH PO (00:29)
[2024-05-06] MEDS ORDERED: BENADRYL ALLERG50 MG PO (00:31)
[2024-05-06] MEDS ORDERED: diphenhydrAMINE hydrochloride 25 MG CAP PO ONE (00:35)
== END 2024-05-06 00:52 | disposition home or self-care (01) ==
LOC: ED 20:40
DX: M25.552 Pain in left hip (principal); M25.562 Pain in left knee; I10 Essential (primary) hypertension; J45.909 Unspecified asthma, uncomplicated; L21.9 Seborrheic dermatitis, unspecified; F41.9 Anxiety disorder, unspecified; F31.9 Bipolar disorder, unspecified; F90.9 Attention-deficit hyperactivity disorder, unspecified type; Z88.5 Allergy status to narcotic agent; Z88.6 Allergy status to analgesic agent; Z88.1 Allergy status to other antibiotic agents; Z88.8 Allergy status to other drugs, medicaments and biological substances; Z90.49 Acquired absence of other specified parts of digestive tract; Z98.890 Other specified postprocedural states

== ENCOUNTER 2024-08-17 07:10 | Emergency (ER) | payer OTHER ==
[~2024-08-17] VITALS: Ht 177.8 cm; Wt 124.7 kg
[~2024-08-17 07:10] MED LIST changes: +BENADRYL ALLERG50 MG PO; +PERCOCET 5-3251 EACH PO
[2024-08-17] MEDS ORDERED: OMEPRAZOLE40 MG PO (07:37)
[2024-08-17] MEDS ORDERED: LAMOTRIGINE25 M1 PO (07:38)
[2024-08-17] MEDS ORDERED: FLUOXETINE HCL40 MG PO (07:38)
[2024-08-17] MEDS ORDERED: BUPROPION XL300 MG PO (07:38)
[2024-08-17] MEDS ORDERED: MELOXICAM15 MG PO (07:49)
[2024-08-17] MEDS ORDERED: SEPTDS PO (07:49)
[2024-08-17] MEDS ORDERED: Sulfamethoxazole/Trimethopri 1 TAB TAB PO ONE (07:50)
[2024-08-17] MEDS ORDERED: Ketorolac Tromethamine 30 MG/ML VIAL IM ONE (07:50)
== END 2024-08-17 08:00 | disposition home or self-care (01) ==
LOC: ED 07:10
DX: L03.313 Cellulitis of chest wall (principal); Z88.6 Allergy status to analgesic agent; Z88.1 Allergy status to other antibiotic agents; Z79.899 Other long term (current) drug therapy; Z90.49 Acquired absence of other specified parts of digestive tract

== ENCOUNTER 2024-12-10 10:01 | Emergency (ER) | payer OTHER ==
[~2024-12-10] VITALS: Ht 175.2 cm; Wt 129.7 kg
[~2024-12-10 10:01] MED LIST changes: +BUPROPION XL300 MG PO; +FLUOXETINE HCL40 MG PO; +LAMOTRIGINE25 M1 PO; +OMEPRAZOLE40 MG PO; +SEPTDS PO
[2024-12-10 10:38] LABS: BASO % 0.7 % (0.0-1.0); EOS # 0.2 10*3/uL (0.0-0.4); EOS % 3.2 % (1.0-4.0); HEMATOCRIT 41.7 % (42.0-52.0); MEAN CELL VOLUME 94.8 fl (80.0-94.0); MEAN CORPUSCULAR HGB 32.3 pg (27.0-31.0); MEAN CORPUSCULAR HGB CONC 34.1 g/dl (33.0-37.0); MEAN PLATELET VOLUME 9.1 fl (9.6-12.3); MONO # 0.5 10*3/uL (0.1-1.0); MONO % 9.7 % (3.0-9.0); NEUT # 3.6 10*3/uL (2.3-7.9); NEUT % 63.5 % (47.0-73.0); PLATELET COUNT AUTOMATED 141 10*3/uL (130-400); RED CELL DISTRI WIDTH 12.2 % (0-14.5); WHITE BLOOD COUNT 5.6 10*3/uL (4.8-10.8)
[2024-12-10 10:57] LABS: BUN 13 mg/dl (9-23); CHLORIDE 104 mmol/L (98-107); POTASSIUM 4.4 mmol/L (3.4-5.1)
== END 2024-12-10 13:15 | disposition home or self-care (01) ==
LOC: ED 10:01
PROVIDERS: Nurse Practitioner Family
DX: R07.89 Other chest pain (principal); I10 Essential (primary) hypertension; J45.909 Unspecified asthma, uncomplicated; K21.9 Gastro-esophageal reflux disease without esophagitis; F41.9 Anxiety disorder, unspecified; F31.9 Bipolar disorder, unspecified; F90.9 Attention-deficit hyperactivity disorder, unspecified type; Z88.5 Allergy status to narcotic agent; Z88.1 Allergy status to other antibiotic agents; Z88.6 Allergy status to analgesic agent; Z88.8 Allergy status to other drugs, medicaments and biological substances; Z90.49 Acquired absence of other specified parts of digestive tract; Z98.890 Other specified postprocedural states

== ENCOUNTER 2025-05-02 13:23 | Emergency (ER) | payer OTHER ==
[~2025-05-02] VITALS: Ht 175.2 cm
[~2025-05-02 13:23] MED LIST changes: +CEFDINIR300 MG PO; +DOXYCYCLINE HY100 M3 PO
[2025-05-02] MEDS ORDERED: diazePAM 5 MG TAB PO ONE (13:40)
[2025-05-02] MEDS ORDERED: CYCLOBENZAPRINE10 MG PO (14:11)
== END 2025-05-02 14:20 | disposition home or self-care (01) ==
LOC: ED 13:23
DX: M54.50 Low back pain, unspecified (principal); M62.838 Other muscle spasm; I10 Essential (primary) hypertension; J45.909 Unspecified asthma, uncomplicated; E03.9 Hypothyroidism, unspecified; K21.9 Gastro-esophageal reflux disease without esophagitis; F41.9 Anxiety disorder, unspecified; Z79.899 Other long term (current) drug therapy; Z88.1 Allergy status to other antibiotic agents; Z88.5 Allergy status to narcotic agent; Z88.6 Allergy status to analgesic agent; Z90.49 Acquired absence of other specified parts of digestive tract; Z98.890 Other specified postprocedural states; X58.XXXA Exposure to other specified factors, initial encounter; Y93.89 Activity, other specified; Y92.89 Other specified places as the place of occurrence of the external cause; Y99.8 Other external cause status

== ENCOUNTER 2025-05-11 11:12 | Emergency (ER) | payer OTHER ==
[~2025-05-11] VITALS: Ht 175.2 cm; Wt 134.3 kg
[2025-05-11] MEDS ORDERED: PREDNISONE20 M1 PO (11:35)
[2025-05-11] MEDS ORDERED: CALAMINE T (11:35)
== END 2025-05-11 11:46 | disposition home or self-care (01) ==
LOC: ED 11:12
DX: Z88.6 Allergy status to analgesic agent (principal); L23.7 Allergic contact dermatitis due to plants, except food; Z90.49 Acquired absence of other specified parts of digestive tract; Z88.1 Allergy status to other antibiotic agents; Z98.890 Other specified postprocedural states

== ENCOUNTER 2025-08-04 15:20 | Emergency (ER) | payer OTHER ==
[~2025-08-04] VITALS: Ht 175.2 cm; Wt 134.3 kg
[~2025-08-04 15:20] MED LIST changes: +CALAMINE T
[2025-08-04] MEDS ORDERED: Acetaminophen/Hydrocodone 5 MG/325 MG TABLET PO ONE (15:45)
[2025-08-04] MEDS ORDERED: HYDROCODONE-AC1 EAC1 PO (16:59)
[2025-08-04] MEDS ORDERED: METHOCARBAMOL750 M1 PO (16:59)
== END 2025-08-04 17:14 | disposition home or self-care (01) ==
LOC: ED 15:20
DX: S43.401A Unspecified sprain of right shoulder joint, initial encounter (principal); Z79.899 Other long term (current) drug therapy; Z88.1 Allergy status to other antibiotic agents; Z88.5 Allergy status to narcotic agent; Z90.49 Acquired absence of other specified parts of digestive tract; Z98.890 Other specified postprocedural states; V86.55XA Driver of 3- or 4- wheeled all-terrain vehicle (ATV) injured in nontraffic accident, initial encounter; Y93.89 Activity, other specified; Y92.488 Other paved roadways as the place of occurrence of the external cause; Y99.8 Other external cause status